=== PATIENT | female | born 1965 | race Hispanic/Latino ===

== ENCOUNTER 2017-04-06 06:19 | Day surgery (SDC) | payer MEDICARE ==
--- NOTE | 2017-04-06 07:08 | Anesthesia Day of Surgery ---
Anesthesia Day of Surgery - Day of Surgery Patient Examined: Yes Patient H&P Reviewed: Yes Patient is NPO: Yes
--- NOTE | 2017-04-06 07:09 | Anesthesia Consultation ---
Anesthesia Consult and Med Hx Date of service: 04/06/17 - Airway Anesthetic Teeth Evaluation: Good ROM Head & Neck: Adequate Mental/Hyoid Distance: Adequate Mallampati Class: Class II Intubation Access Assessment: Probably Good - Pulmonary Exam CTA: Yes - Cardiac Exam Cardiac Exam: RRR - Pre-Operative Health Status ASA Pre-Surgery Classification: ASA3 Proposed Anesthetic Plan: General, MAC - Cardiovascular System Hx Hypertension: Yes - Central Nervous System Hx Psychiatric Problems: Yes (bipolar) - Endocrine Hx Thyroid Disease: Yes - Other Systems Hx Obesity: Yes
[2017-04-06] MEDS ORDERED: DIPRIVAN 10 MG/ML IV ONE ×2 (07:23)
[2017-04-06] MEDS ORDERED: NACL 0.9% 1000 ML 1,000 ML IV SCH (08:00)
[2017-04-06] MEDS ORDERED: XYLOCAINE MPF 2% ONE (08:00)
--- NOTE | 2017-04-06 08:38 | Discharge Summary ---
Providers - Providers Date of discharge: 04/06/17 Attending physician: ASTRID RIZO Hospitalization Reason for admission: outpatient EGD Condition: Stable Procedures: EGD Disposition: DISCHARGED TO HOME OR SELFCARE Core Measure Documentation - Palliative Care Palliative Care/ Comfort Measures: Not Applicable - Core Measures Any of the following diagnoses?: none Exam - Physical Exam Narrative exam: unchanged from preop - Constitutional Vitals: Temp Pulse Resp BP Pulse Ox 97.9 F 69 15 137/88 100 04/06/17 07:36 04/06/17 07:36 04/06/17 07:36 04/06/17 07:36 04/06/17 07:36 Plan Activity: advance as tolerated Diet: low carbohydrate
--- NOTE | 2017-04-06 09:28 | Operative Report ---
Operative Report Operative Report: Operative Report: EGD Post bypass DATE: 04/06/2017 OPERATIVE REPORT - EGD PREOP DIAGNOSIS: gastric dyspepsia POSTOP DIAGNOSIS: same SURGERY: Upper endoscopy. SURGEON: Baldomero Mendoza M.D. EMR TRAINER: Dmitry Vargas M.D. TYPE OF ANESTHESIA: MAC. ESTIMATED BLOOD LOSS: None. COMPLICATIONS: None. SPECIMENS REMOVED: None. FINDINGS: 1. normal esophagus 2. gastric pouch - 45ml 3. gastrojejunal anastomosis is 30mm INDICATIONS:INDICATION FOR PROCEDURE: Patient is a 51-year-old female s/p gastric bypass in 2007. The patient is here today for evaluation for revisional surgery. The patient is here for a planned EGD for gastric dyspepsia. PROCEDURE DETAILS: After consent was reviewed, patient was taken back to the operating room where patient was placed in the left lateral decubitus position and a bite block was placed in the mouth. After a time-out was called, MAC anesthesia was initiated. I then passed the endoscope into the patients oropharynx, into the esophagus, visualized the entire esophagus, which was all within normal limits. I then visualized the gastric pouch which was normal and about 45ml in size. The gastrojejunal anastomosis was stretched at about 30mm. The proximal portion of the veronika limb was normal. I then desufflated the gastric pouch and removed the endoscope. Patient tolerated procedure well and was transferred to recovery room in good and stable condition
[2017-04-06 09:30] VITALS: BP 100/59
--- NOTE | 2017-04-06 14:22 | Post Anesthesia Evaluation ---
- Post Anesthesia Evaluation Patient Participated: Yes Airway Patent: Yes Stable Respiratory Function: Yes Nausea/Vomiting: No Temp > 96.8F: Yes Pain Manageable: Yes Adequeate Hydration: Yes Anesthesia Complications: No Block Receding Appropriately: Not Applicable Patient on Ventilator: No
== END 2017-04-06 06:20 | disposition home or self-care (01) ==
LOC: GIO 06:19
PROVIDERS: ATTEND Specialist
DX: R10.13 Epigastric pain (principal); I10 Essential (primary) hypertension; F31.9 Bipolar disorder, unspecified; E03.9 Hypothyroidism, unspecified; M19.90 Unspecified osteoarthritis, unspecified site; F32.9 Major depressive disorder, single episode, unspecified; F41.9 Anxiety disorder, unspecified; E66.9 Obesity, unspecified; Z68.35 Body mass index [BMI] 35.0-35.9, adult; Z98.84 Bariatric surgery status; Z90.710 Acquired absence of both cervix and uterus; Z98.890 Other specified postprocedural states; Z82.49 Family history of ischemic heart disease and other diseases of the circulatory system; Z79.899 Other long term (current) drug therapy
CPT/HCPCS: 43235; J2704; J7030